=== PATIENT | female | born 1980 | race Caucasian/White ===

== ENCOUNTER 2017-06-28 12:11 | Emergency (ER) | payer OTHER ==
[2017-06-28 13:00] LABS: Bilirubin Negative (Negative); Blood, Urine Negative (Negative); Clarity CLOUDY (Clear); Glucose, Urine (Dipstick) Negative (Negative); Leukocyte Moderate (Negative); Nitrite Negative (Negative); Protein, Urine (Dipstick) 30 mg/dL (Neg-Trace); Specific Gravity, Urine 1.015 (1.002-1.036); Urobilinogen 0.2 mg/dL (0.2-1.0); pH, Urine 8.5 (5.0-9.0)
[2017-06-28 13:01] LABS: Bacteria/HPF None Seen HPF (None Seen); Hyaline Casts/LPF 0-3 HYALINE CAST LPF (0-3 Hyaline); Pathc Cast-AUWi Flag 0.14 (0-2.49); RBC/HPF 0-3 HPF (0-3); WBC/HPF 0-3 HPF (0-3)
[2017-06-28 13:15] LABS: #Eosinphils 0.1 thou/uL (0.0-0.7); #Lymphocytes 1.6 thou/uL (1.20-3.40); #Monocytes 0.6 thou/uL (0.11-0.59); #Neutrophils 2.8 thou/uL (1.40-6.50); %Basophils 0.9 % (0.0-1.0); %Eosinophils 1.5 % (0.0-10.0); %Lymphocytes 30.7 % (21.0-51.0); %Monocytes 11.7 % (0.0-10.0); %Neutrophils 55.2 % (42.0-75.0); Hemoglobin 12.2 g/dL (12.0-16.0); Mean Corpuscular HGB CONC 32.2 g/dL (32.0-36.0); Mean Corpuscular Hemoglobin 27.2 pg (27.0-31.0); Mean Corpuscular Volume 84.4 fl (81.0-99.0); Mean Platelet Volume 9.5 fL (7.4-10.4); Platelet Count 219 thou/uL (130-400); RBC Distribution Width 13.2 % (11.5-14.5); Red Blood Cell (RBC) Count 4.49 mill/uL (4.20-5.40)
[2017-06-28 13:39] LABS: ALT (SGPT) 35 U/L (8-55); AST (SGOT) 35 U/L (5-34); Alkaline Phosphatase 77 U/L (40-150); Anion Gap 10 mmol/L (10-20); BUN (Urea Nitrogen) 8 mg/dL (7.0-18.7); Bilirubin, Total 0.5 mg/dL (0.2-1.2); Calc. Creatinine Clearance 0 mL/min (70-130); Calcium 9.1 mg/dL (7.8-10.44); Carbon Dioxide 27 mmol/L (22-29); Chloride 103 mmol/L (98-107); Estimated GFR-MDRD Greater than 90; Globulin 2.8 g/dL (2.4-3.5); Glucose 72 mg/dL (70-105); Potassium 3.3 mmol/L (3.5-5.1); Protein, Total 6.8 g/dL (6.0-8.3); Sodium 137 mmol/L (136-145)
[2017-06-28 14:59] LABS: Pregnancy Test - Urine (BHCG) Negative (Negative); Pregu Control Background? CLEAR/WHITE (CLR/WHITE); Pregu Control Bar Appear? YES (CONTROL BAR); Specific Gravity 1.015 (1.002-1.036)
== END 2017-06-28 14:49 | disposition home or self-care (01) ==
LOC: ERS 12:11
DX: N30.01 Acute cystitis with hematuria (principal); E03.9 Hypothyroidism, unspecified; F41.9 Anxiety disorder, unspecified; F31.9 Bipolar disorder, unspecified; Z87.891 Personal history of nicotine dependence
CPT/HCPCS: 36415; 80053; 81003; 81015; 81025; 85025; 87086; 99283

== ENCOUNTER 2019-08-11 15:35 | Observation (INO) | payer OTHER ==
[2019-08-11 17:11] VITALS: BMI 25.4
[2019-08-11] MEDS ORDERED: Ketorolac Tromethamine 30 MG/ML VIAL IVP SCH (17:17)
[2019-08-11] MEDS ORDERED: Ondansetron ODT 4 MG TAB PO PRN (17:17)
[2019-08-11] MEDS ORDERED: Dextrose 50% Abboject 50 ML SYRINGE SLOW IVP PRN (17:17)
[2019-08-11] MEDS ORDERED: Cyclobenzaprine 10 MG TAB PO PRN (17:17)
[2019-08-11] MEDS ORDERED: hydrALAZINE 20 MG/ML VIAL SLOW IVP PRN (17:17)
[2019-08-11] MEDS ORDERED: Dextrose 5% in Water 1,000 ML IV PRN (17:17)
[2019-08-11] MEDS ORDERED: traMADol HCl 50 MG TAB PO PRN ×2 (17:17)
[2019-08-11] MEDS ORDERED: Ondansetron PF 4 MG/2 ML Vial IVP PRN (17:17)
[2019-08-11] MEDS: Acetaminophen 325 MG TAB PO SCH ×2 (17:39→23:25)
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
[2019-08-11] MEDS: Acetaminophen/Codeine 30-300mg Tablet PO PRN (21:16)
[2019-08-11] MEDS: Ibuprofen 600 MG TAB PO SCH (21:16)
[2019-08-12] MEDS: Ibuprofen 600 MG TAB PO SCH (06:05)
[2019-08-12] MEDS: Acetaminophen 325 MG TAB PO SCH (06:05)
[2019-08-12 07:45] VITALS: BP 103/68; TEMP 97.7
[2019-08-12] MEDS: Acetaminophen/Codeine 30-300mg Tablet PO PRN (08:24)
[2019-08-12] MEDS ORDERED: Enoxaparin Sodium 40 MG/0.4 ML SYRINGE SC SCH (09:00)
--- NOTE | 2019-08-12 09:37 | RAD ---
PORTABLE CHEST 1 VIEW: Date: 08/12/2019 Time: 0717 hours HISTORY: Follow-up tiny pneumothorax. FINDINGS/IMPRESSION: The heart size is normal. The lungs are well expanded without focal areas of consolidation or pleural effusions. No definite pneumothorax is seen. There is slight hyperlucency in the right costophrenic angle compared to the exam of 05/02/2015 which could represent a tiny pneumothorax on the chest CT of previous day. POS: OFF
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
== END 2019-08-12 11:50 | disposition home or self-care (01) ==
LOC: INTOOBSV 16:42 → SURG A 16:42
PROVIDERS: ADMIT Surgery; ATTEND Surgery
DX: S22.41XA Multiple fractures of ribs, right side, initial encounter for closed fracture (principal); J93.9 Pneumothorax, unspecified; V86.59XA Driver of other special all-terrain or other off-road motor vehicle injured in nontraffic accident, initial encounter
CPT/HCPCS: 71045; 96372; 96374; 96375; G0378; J1650; J1885; J2405

== ENCOUNTER 2019-08-22 09:58 | Outpatient (CLI) | payer OTHER ==
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
== END 2019-08-22 09:59 | disposition home or self-care (01) ==
LOC: BICRAD 09:58
PROVIDERS: ATTEND Physician Assistant
DX: S27.0XXD Traumatic pneumothorax, subsequent encounter (principal); S22.41XD Multiple fractures of ribs, right side, subsequent encounter for fracture with routine healing
CPT/HCPCS: 71046

== ENCOUNTER 2025-01-23 12:40 | Emergency (ER) | payer OTHER, SELFPAY ==
[~2025-01-23 12:40] MED LIST: Iopamidol-370 76% 500 ML MDV (1 ML CHARGE) ONE
[2025-01-23] MEDS ORDERED: Ketorolac Tromethamine 30 MG (1 mL) VIAL ONE (13:48)
[2025-01-23 14:31] LABS: #Basophils 0.03 10x3/uL (0.0-0.2); #Eosinophils 0.07 10x3/uL (0.0-0.7); #Monocytes 0.64 10x3/uL (0.11-0.59); #Neutrophils 5.79 10x3/uL (1.40-6.50); %Basophils 0.4 % (0.0-1.0); %Eosinophils 0.9 % (0.0-10.0); %Lymphocytes 16.1 % (21.0-51.0); %Monocytes 8.2 % (0.0-10.0); %Neutrophils 74.0 % (42.0-75.0); Hematocrit 38.9 % (36.0-47.0); Hemoglobin 12.6 g/dL (12.0-16.0); Mean Corpuscular Hemoglobin 29.2 pg (27.0-31.0); Mean Corpuscular Volume 90.0 fL (78.0-98.0); Platelet Count 173 10x3/uL (130-400); Red Blood Cell (RBC) Count 4.32 mill/uL (4.20-5.40); White Blood Cell (WBC) Count 7.82 10x3/uL (4.8-10.8)
[2025-01-23 14:35] LABS: ALT (SGPT) 21 U/L (Less than 34); AST (SGOT) 33 U/L (11-34); Albumin 3.8 g/dL (3.1-4.5); Alkaline Phosphatase 45 U/L (40-110); Anion Gap 14 mmol/L (10-20); BUN (Urea Nitrogen) 10 mg/dL (7.0-18.7); Bilirubin, Total 0.6 mg/dL (0.3-1.2); Calc. Creatinine Clearance 0 mL/min (70-130); Calcium 9.3 mg/dL (7.8-10.44); Carbon Dioxide 26 mmol/L (22-29); Chloride 104 mmol/L (98-107); Globulin 2.7 g/dL (2.4-3.5); Glucose 88 mg/dL (70-105); Potassium 3.7 mmol/L (3.5-5.1); Sodium 140 mmol/L (136-145)
== END 2025-01-23 15:16 | disposition home or self-care (01) ==
LOC: ERS 12:40
DX: H65.92 Unspecified nonsuppurative otitis media, left ear (principal); Z87.891 Personal history of nicotine dependence
CPT/HCPCS: 70481; 80053; 85025; 86141; 96374; J1885